=== PATIENT | female | born 2005 | race Two or more races ===

== ENCOUNTER 2025-05-04 22:18 | Emergency (ER) | payer OTHER ==
[~2025-05-04] VITALS: Ht 162.6 cm; Wt 68.0 kg
[2025-05-04] MEDS ORDERED: SEROQUEL25 MG (22:27)
[2025-05-04] MEDS ORDERED: PAXIL20 MG (22:32)
[2025-05-04] MEDS ORDERED: MULTIVIT INFUSN,ADULT 4,VIT K 10 ML VIAL IV SCH (22:54)
[2025-05-04] MEDS ORDERED: RINGERS SOLUTION,LACTATED 1,000 ML IV SCH (23:00)
[2025-05-04] MEDS ORDERED: 0.9 % SODIUM CHLORIDE 1,000 ML IV SCH (23:00)
[2025-05-04] MEDS ORDERED: ACETYLCYSTEINE PO STA (23:02)
[2025-05-04] MEDS ORDERED: ACETYLCYSTEINE PO SCH (23:15)
[2025-05-05 00:15] LABS: BASO % 0.2 % (0.1-1.2); EOS # 0.10 (0.04-0.54); EOS % 0.8 % (0.7-7.0); LYMPH # 2.27 (1.18-3.74); LYMPH % 17.3 % (19.3-53.1); MEAN PLATELET VOLUME 10.30 fl (9.4-12.4); MONO # 1.49 (0.24-0.82); MONO % 11.4 % (4.7-12.5); NEUT # 9.14 (1.56-6.13); NEUT % 69.6 % (34.0-71.1); RED CELL DISTRIBUTION WIDTH 11.9 % (11.6-14.4)
[2025-05-05 01:10] LABS: ALT/SGPT 17.0 U/L (12-78); AST/SGOT 46.0 U/L (15-37); BILIRUBIN TOTAL 0.34 mg/dL (0.3-1.2); BUN CREA RATIO 11.0 (7.0-25.0); CREATININE SERUM 0.74 mg/dL (0.55-1.02); GFR 100.05; GLOBULINA 4.3 G/DL (2.4-3.5); GLUCOSE FASTING 96.0 mg/dL (65-100); OSMOLALITY SERUM 272.0 MOSM/KG (275-295)
== END 2025-05-05 03:38 | disposition home or self-care (01) ==
LOC: ER 22:18 → EMR PED 22:18
PROVIDERS: Emergency Medicine Pediatric Emergency Medicine
DX: F19.10 Other psychoactive substance abuse, uncomplicated (principal); F10.10 Alcohol abuse, uncomplicated; F41.9 Anxiety disorder, unspecified; F43.10 Post-traumatic stress disorder, unspecified; F12.90 Cannabis use, unspecified, uncomplicated